=== PATIENT | female | born 1975 | race Caucasian/White ===

== ENCOUNTER → 2020-05-19 | Outpatient (CLI) | payer OTHER ==
[~2020-05-19] MED LIST: none per patient
[2020-05-19 15:50] LABS: BASOPHILS # (AUTO) 0.04 x10^3/uL (0-0.1); BASOPHILS % (AUTO) 1 % (0-1); EOSINOPHILS # (AUTO) 0.16 x10^3/uL (0-0.4); EOSINOPHILS % (AUTO) 2 % (1-7); LYMPHOCYTES # (AUTO) 2.62 x10^3/uL (1-3.4); LYMPHOCYTES % (AUTO) 31 % (22-44); MD NO; MEAN CORPUSCULAR HEMOGLOBIN 30.6 pg (27.0-34.8); MEAN CORPUSCULAR HGB CONC 33.1 g/dL (32.4-35.8); MEAN CORPUSCULAR VOLUME 92.4 fL (80-100); MEAN PLATELET VOLUME 8.2 fL (7.4-10.4); MONOCYTES # (AUTO) 0.57 x10^3/uL (0.2-0.8); MONOCYTES % (AUTO) 7 % (2-9); NEUTROPHILS % (AUTO) 60 % (42-75); PLATELET COUNT 311 x10^3/uL (130-400); RED BLOOD COUNT 4.62 x10^6/uL (3.82-5.3); RED CELL DISTRIBUTION WIDTH 12.5 % (9.6-15.2)
[2020-05-19 15:52] LABS: MICROSCOPIC NOT IND
[2020-05-19 15:57] LABS: ANION GAP 5 mmol/L (5-15); CALCIUM 8.6 mg/dL (8.5-10.1); CHLORIDE 108 mmol/L (98-107); CREATININE 1.02 mg/dL (0.55-1.02)
== END | disposition home or self-care (01) ==
LOC: STAR 14:32
PROVIDERS: ATTEND Obstetrics & Gynecology Gynecology
DX: Z01.818 Encounter for other preprocedural examination (principal); D21.9 Benign neoplasm of connective and other soft tissue, unspecified; N93.9 Abnormal uterine and vaginal bleeding, unspecified
CPT/HCPCS: 36415; 80048; 81003; 85025

== ENCOUNTER 2020-05-27 07:05 | Day surgery (SDC) | payer OTHER ==
[~2020-05-27] VITALS: Ht 165.1 cm; Wt 84.7 kg
[2020-05-27] MEDS ORDERED: LACTATED RINGERS 1,000 ML IV SCH (07:27)
[2020-05-27] MEDS ORDERED: CHLORHEXIDINE 15 ML UDC MM ONE (07:30)
[2020-05-27] MEDS ORDERED: OXYcodone 5 MG/5 ML ORAL.SOL UDC PO PRN (08:30)
[2020-05-27] MEDS ORDERED: EPHEDRINE 50 MG/ML, 1ML IM PRN (08:30)
[2020-05-27] MEDS ORDERED: MIDAZOLAM 1 MG/ML, 2ML IV PRN (08:30)
[2020-05-27] MEDS ORDERED: MEPERIDINE/PF 25MG/0.5ML IVPush PRN (08:30)
[2020-05-27] MEDS ORDERED: ACETAMINOPHEN 325 MG TABLET PO PRN (08:30)
[2020-05-27] MEDS ORDERED: HALOPERIDOL 5 MG/ML IV PRN (08:30)
[2020-05-27] MEDS ORDERED: ONDANSETRON 2MG/ML, 2ML IVPush PRN (08:30)
[2020-05-27] MEDS ORDERED: LORazepam 2 MG/ML, 1ML IVPush PRN (08:30)
[2020-05-27] MEDS ORDERED: hydrALAzine 20 MG/ML, 1ML IV PRN (08:30)
[2020-05-27] MEDS ORDERED: DIPHENHYDRAMINE 50 MG/ML, 1ML IVPush PRN (08:30)
[2020-05-27] MEDS ORDERED: EPHEDRINE 50 MG/ML, 1ML IVPush PRN (08:30)
[2020-05-27] MEDS ORDERED: ALBUTEROL/IPRATROPIUM 2.5MG/0.5MG, 3 ML NPPB PRN (08:30)
[2020-05-27] MEDS ORDERED: HYDROmorphone 1 MG/ML, 1ML INJ IVPush PRN (08:30)
[2020-05-27] MEDS ORDERED: DIAZEPAM 5 MG/ML, 2ML IVPush PRN (08:30)
[2020-05-27] MEDS ORDERED: FENTANYL PF 100 MCG/2ML IV PRN (08:30)
[2020-05-27] MEDS ORDERED: KETOROLAC 30 MG/1 ML IM PRN (08:30)
[2020-05-27] MEDS ORDERED: HYDROcodone/APAP 7.5-325MG/15ML UDC PO PRN (08:30)
[2020-05-27] MEDS ORDERED: METOCLOPRAMIDE 5 MG/ML, 2ML IVPush PRN (08:30)
[2020-05-27] MEDS ORDERED: LABETALOL 5MG/ML, 20ML IV PRN (08:30)
[2020-05-27 08:33] LABS: HCG UR SG 1.021 (1.003-1.030)
[2020-05-27] MEDS ORDERED: LIDOCAINE-MPF 2% ,5ML ONE (08:41)
[2020-05-27] MEDS ORDERED: GLYCOPYRROLATE 0.2MG/1ML, 5ML ONE (08:41)
[2020-05-27] MEDS ORDERED: PROPOFOL 10 MG/ML, 20ML ONE (08:41)
[2020-05-27] MEDS ORDERED: DEXAMETHASONE 4 MG/ML, 1ML ONE (08:41)
[2020-05-27] MEDS ORDERED: ROCURONIUM 10MG/ML,5ML ONE (08:41)
[2020-05-27] MEDS ORDERED: FENTANYL PF 100 MCG/2ML ONE (08:41)
[2020-05-27] MEDS ORDERED: ONDANSETRON 2MG/ML, 2ML ONE (08:41)
[2020-05-27] MEDS ORDERED: MIDAZOLAM 1 MG/ML, 2ML ONE (08:42)
[2020-05-27] MEDS ORDERED: SCOPOLAMINE 1MG PATCH TD ONE (09:20)
[2020-05-27] MEDS ORDERED: SCOPOLAMINE 1MG PATCH TD SCH (09:30)
[2020-05-27] MEDS ORDERED: METOCLOPRAMIDE 5 MG/ML, 2ML ONE (09:39)
== END 2020-05-27 13:05 | disposition home or self-care (01) ==
LOC: OUT 07:05
PROVIDERS: ATTEND Obstetrics & Gynecology Gynecology
DX: N93.9 Abnormal uterine and vaginal bleeding, unspecified (principal); N94.5 Secondary dysmenorrhea; N94.12 Deep dyspareunia; D25.9 Leiomyoma of uterus, unspecified; F32.9 Major depressive disorder, single episode, unspecified; F41.9 Anxiety disorder, unspecified; E66.9 Obesity, unspecified; Z68.31 Body mass index [BMI] 31.0-31.9, adult; Z90.49 Acquired absence of other specified parts of digestive tract; Z98.890 Other specified postprocedural states; Z82.49 Family history of ischemic heart disease and other diseases of the circulatory system; Z83.3 Family history of diabetes mellitus; Z80.1 Family history of malignant neoplasm of trachea, bronchus and lung; Z80.3 Family history of malignant neoplasm of breast; Z72.89 Other problems related to lifestyle
CPT/HCPCS: 36415; 58561; 58563; 81025; 87635; 88305; J1100; J2250; J2405; J2704; J2765; J3010; J7120

== ENCOUNTER 2021-01-13 05:40 | Day surgery (SDC) | payer OTHER ==
[~2021-01-13] VITALS: Ht 162.6 cm; Wt 85.0 kg
[2021-01-13] MEDS ORDERED: CHLORHEXIDINE 15 ML UDC MM STA (06:02)
[2021-01-13] MEDS ORDERED: CHLORHEXIDINE 15 ML UDC ONE (06:08)
[2021-01-13 06:18] VITALS: BP 148/93
[2021-01-13] MEDS ORDERED: LACTATED RINGERS 1,000 ML IV SCH (06:30)
[2021-01-13] MEDS ORDERED: MIDAZOLAM 1 MG/ML, 2ML ONE (06:58)
[2021-01-13] MEDS ORDERED: FENTANYL PF 250 MCG/5ML ONE (06:59)
[2021-01-13] MEDS ORDERED: FLUORESCEIN SODIUM 500 MG/5 ML ONE (07:04)
[2021-01-13] MEDS ORDERED: LABETALOL 5MG/ML, 20ML IV PRN (08:00)
[2021-01-13] MEDS ORDERED: ACETAMINOPHEN 325 MG TABLET PO PRN (08:00)
[2021-01-13] MEDS ORDERED: PROMETHAZINE 25 MG/ML, 1ML IVPush PRN (08:00)
[2021-01-13] MEDS ORDERED: hydrALAzine 20 MG/ML, 1ML IV PRN (08:00)
[2021-01-13] MEDS ORDERED: METOCLOPRAMIDE 5 MG/ML, 2ML IVPush PRN (08:00)
[2021-01-13] MEDS ORDERED: ONDANSETRON 2MG/ML, 2ML IVPush PRN (08:00)
[2021-01-13] MEDS ORDERED: DIPHENHYDRAMINE 50 MG/ML, 1ML IVPush PRN (08:00)
[2021-01-13] MEDS ORDERED: DIAZEPAM 5 MG/ML, 2ML IVPush PRN (08:00)
[2021-01-13] MEDS ORDERED: FENTANYL PF 100 MCG/2ML IV PRN (08:00)
[2021-01-13] MEDS ORDERED: HYDROmorphone 1 MG/ML, 1ML INJ IVPush PRN (08:00)
[2021-01-13] MEDS ORDERED: EPHEDRINE 50 MG/ML, 1ML IVPush PRN (08:00)
[2021-01-13] MEDS ORDERED: METOPROLOL 1 MG/ML, 5ML IV PRN (08:00)
[2021-01-13] MEDS ORDERED: HALOPERIDOL 5 MG/ML IV PRN (08:00)
[2021-01-13] MEDS ORDERED: FENTANYL PF 100 MCG/2ML ONE ×2 (09:44→10:18)
[2021-01-13] MEDS ORDERED: ACETAMINOPHEN 650 MG/20.3 ML UDC ONE (10:17)
[2021-01-13] MEDS ORDERED: OXYcodone 5 MG/5 ML ORAL.SOL UDC ONE (10:18)
[2021-01-13] MEDS: OXYcodone 5 MG/5 ML ORAL.SOL UDC PO PRN (11:10)
[2021-01-13] MEDS ORDERED: METOCLOPRAMIDE 5 MG/ML, 2ML ONE (16:41)
[2021-01-13] MEDS ORDERED: ONDANSETRON 2MG/ML, 2ML ONE (16:41)
[2021-01-13] MEDS ORDERED: PROPOFOL 10 MG/ML, 20ML ONE (16:41)
[2021-01-13] MEDS ORDERED: SUGAMMADEX 200 MG/2 ML IVPush ONE (16:41)
[2021-01-13] MEDS ORDERED: PHENYLEPHRINE 10 MG/ML ONE (16:41)
[2021-01-13] MEDS ORDERED: CEFOTETAN 2 GM ONE (16:41)
[2021-01-13] MEDS ORDERED: DEXAMETHASONE 4 MG/ML, 1ML ONE (16:41)
[2021-01-13] MEDS ORDERED: ROCURONIUM 10MG/ML,5ML ONE (16:41)
== END 2021-01-13 14:10 | disposition home or self-care (01) ==
LOC: OUT 05:40
PROVIDERS: ATTEND Obstetrics & Gynecology Gynecology
DX: N93.8 Other specified abnormal uterine and vaginal bleeding (principal); D25.1 Intramural leiomyoma of uterus; N94.6 Dysmenorrhea, unspecified; N80.0 Endometriosis of uterus; Q60.0 Renal agenesis, unilateral; Z90.49 Acquired absence of other specified parts of digestive tract; Z98.890 Other specified postprocedural states; Z72.89 Other problems related to lifestyle; Z79.899 Other long term (current) drug therapy
CPT/HCPCS: 58573; 88307; J1100; J2250; J2370; J2405; J2704; J2765; J3010; J7120